=== PATIENT | female | born 2000 | race Caucasian/White ===

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

== ENCOUNTER 2024-09-23 10:09 | Emergency (ER) | payer BC ==
[~2024-09-23] VITALS: Ht 165.1 cm; Wt 75.9 kg
[~2024-09-23 10:09] MED LIST changes: +JUNEL 1 MG-201 EACH PO; +NAPROXEN250 MG PO; +ZOFRAN4 MG PO
[2024-09-23 10:28] VITALS: BP 121/83
[2024-09-23] MEDS ORDERED: Amoxicillin/Clavulanate Pota 875 MG TAB PO ONE (10:40)
[2024-09-23] MEDS ORDERED: Acetaminophen/Oxycodone 5 MG/325 MG TABLET PO ONE (10:40)
[2024-09-23] MEDS ORDERED: AMOX-CLAV 875-1 EACH PO (10:49)
[2024-09-23] MEDS ORDERED: MELOXICAM15 MG PO (10:49)
== END 2024-09-23 11:04 | disposition home or self-care (01) ==
LOC: ED 10:09
DX: S71.111A Laceration without foreign body, right thigh, initial encounter (principal); S50.812A Abrasion of left forearm, initial encounter; S50.811A Abrasion of right forearm, initial encounter; S80.812A Abrasion, left lower leg, initial encounter; W54.0XXA Bitten by dog, initial encounter; Y93.89 Activity, other specified; Y92.89 Other specified places as the place of occurrence of the external cause; Y99.0 Civilian activity done for income or pay